=== PATIENT | male | born 1935 | race Caucasian/White ===

== ENCOUNTER 2023-08-28 21:26 | Emergency (ER) | payer OTHER ==
[2023-08-28 21:32] VITALS: BP 138/68; PULSE 73; RESP 18; TEMP 99.5; BMI 28.7
[2023-08-28] MEDS ORDERED: LACTATED RINGERS SOLUTION 1000 ML INFUS.BAG IV ONE (22:45)
[2023-08-28 23:15] LABS: BASO % 0.4 % (0-2.0); EOS % 1.5 % (0-4.5); HEMATOCRIT 42.6 % (35.4-49); HEMOGLOBIN 14.1 GM/dL (11.7-16.9); LYMPH % 5.9 % (8-40); MCH 30.9 pg (25.7-33.7); MEAN CELL VOLUME 93.5 fl (80-96); MEAN PLT VOLUME 7.3 fl (7.5-11.1); MONO % 7.4 % (3.8-10.2); NEUT % 84.8 % (42.8-82.8); PLATELET COUNT 129 10^3/uL (134-434); RBC 4.56 M/mm3 (4.00-5.60); RDW 14.4 % (11.9-15.9); WHITE BLOOD COUNT 6.7 K/mm3 (4.0-10.0)
[2023-08-28 23:22] LABS: INR 1.1 (0.83-1.09); PROTHROMBIN TIME (PATIENT) 12.7 SEC (9.7-13.0)
[2023-08-28 23:24] LABS: ACTIVATED PTT 27.4 SECONDS (25.2-36.5)
[2023-08-28 23:45] LABS: POTASSIUM 4.3 mmol/L (3.5-5.1)
[2023-08-28 23:47] LABS: ALBUMIN 3.5 g/dl (3.4-5.0); BLOOD UREA NITROGEN 15.3 mg/dL (7-18); MAGNESIUM 1.8 mg/dL (1.8-2.4)
[2023-08-28 23:51] LABS: CREATININE 1.2 mg/dL (0.55-1.3); TOT PROT 7.2 g/dl (6.4-8.2)
[2023-08-28 23:59] LABS: BILIRUBIN,TOTAL 0.3 mg/dL (0.2-1)
[2023-08-29] MEDS ORDERED: ACETAMINOPHEN 1000 MG/100 ML BAG IVPB ONE (00:06)
[2023-08-29] MEDS ORDERED: ACETAMINOPHEN INJECTION 100 ML IVPB ONE (00:23)
[2023-08-29] MEDS ORDERED: AMOX TR/POT CLAV 875MG/125MG TABLETS (FP) PO ONE ×2 (02:01→02:02)
[2023-08-29] MEDS ORDERED: AZITHROMYCIN 250 MG TABLET PO ONE (02:03)
[2023-08-29] MEDS ORDERED: AZITHROMYCIN 500 MG TABLET ONE (02:04)
[2023-08-29] MEDS ORDERED: AMOX TR/POT CLAV 875MG/125MG TABLETS (FP) ONE (02:04)
[2023-08-29] MEDS ORDERED: AZITHROMYCIN 500 MG TABLET PO SCH (10:00)
== END 2023-08-29 02:15 | disposition home or self-care (01) ==
LOC: JER 21:26
PROC: 3E033NZ Introduction of Analgesics, Hypnotics, Sedatives into Peripheral Vein, Percutaneous Approach (ICD-10-PCS; principal; 2023-08-29)
DX: R53.1 Weakness (principal); U07.1 COVID-19
CPT/HCPCS: 0241U-QW; 36415; 71045-TC-FY; 80053; 83690; 83735; 84439; 84443; 84484; 85025; 85610; 85730; 93005; 93010; 99285-25